=== PATIENT | female | born 1965 | race Caucasian/White ===

== ENCOUNTER 2020-10-13 00:47 | Inpatient (IN) | payer BC ==
[2020-10-13 02:37] VITALS: BMI 28.5
[2020-10-13] MEDS ORDERED: Ondansetron PF 4 MG/2 ML Vial IVP PRN (06:02)
[2020-10-13] MEDS ORDERED: Acetaminophen 325 MG TAB PO PRN (06:02)
[2020-10-13] MEDS ORDERED: Ondansetron ODT 4 MG TAB PO PRN (06:02)
[2020-10-13] MEDS ORDERED: Piperacillin/Tazobactam 3.375 GM in Sodium Chloride 0.9% 100 ML IVPB SCH (06:15)
[2020-10-13] MEDS: Sodium Chloride 0.9% 1,000 ML IV SCH ×2 (06:27→16:15)
[2020-10-13 06:37] LABS: Hemoglobin 12.8 g/dL (12.0-16.0)
[2020-10-13] MEDS: Morphine 2 MG/ML VIAL SLOW IVP PRN (09:09)
[2020-10-13 11:49] LABS: Hemoglobin 12.4 g/dL (12.0-16.0)
[2020-10-13] MEDS: Piperacillin/Tazobactam 3.375 GM in Sodium Chloride 0.9% 100 ML IVPB SCH ×2 (13:24→20:46)
[2020-10-13 14:57] LABS: SARS-CoV-2 PCR by NAA Not Detected (NotDetected)
[2020-10-14] MEDS: Morphine 2 MG/ML VIAL SLOW IVP PRN ×2 (02:23→13:24)
[2020-10-14] MEDS: Sodium Chloride 0.9% 1,000 ML IV SCH ×3 (02:38→23:32)
[2020-10-14] MEDS: Piperacillin/Tazobactam 3.375 GM in Sodium Chloride 0.9% 100 ML IVPB SCH ×3 (05:39→21:12)
[2020-10-14 05:59] LABS: #Eosinphils 0.2 thou/uL (0.0-0.7); #Lymphocytes 1.6 thou/uL (1.20-3.40); #Monocytes 0.4 thou/uL (0.11-0.59); #Neutrophils 2.9 thou/uL (1.40-6.50); %Basophils 0.3 % (0.0-1.0); %Eosinophils 3.8 % (0.0-10.0); %Lymphocytes 31.3 % (21.0-51.0); %Monocytes 8.4 % (0.0-10.0); %Neutrophils 56.3 % (42.0-75.0); Hemoglobin 12.3 g/dL (12.0-16.0); Mean Corpuscular HGB CONC 32.9 g/dL (32.0-36.0); Mean Corpuscular Hemoglobin 29.8 pg (27.0-31.0); Mean Corpuscular Volume 90.5 fL (78.0-98.0); Mean Platelet Volume 8.4 fL (7.4-10.4); Platelet Count 200 thou/uL (130-400); RBC Distribution Width 13.6 % (11.5-14.5); Red Blood Cell (RBC) Count 4.13 mill/uL (4.20-5.40); White Blood Cell (WBC) Count 5.2 thou/uL (4.8-10.8)
[2020-10-14] MEDS: Hydrocortisone Acetate 25 MG Suppository PR SCH ×2 (06:04→21:12)
[2020-10-14 06:17] LABS: Anion Gap 13 mmol/L (10-20); BUN (Urea Nitrogen) 7 mg/dL (9.8-20.1); Calc. Creatinine Clearance 98 mL/min (70-130); Calcium 8.5 mg/dL (7.8-10.44); Carbon Dioxide 23 mmol/L (22-29); Chloride 105 mmol/L (98-107); Glucose 118 mg/dL (70-105); Potassium 4.1 mmol/L (3.5-5.1); Sodium 137 mmol/L (136-145)
[2020-10-14] MEDS ORDERED: Polyethylene Glycol 3350 17 GM Packet PO PRN (10:21)
[2020-10-14] MEDS ORDERED: Bisacodyl 5 MG TAB PO PRN (10:22)
[2020-10-14] MEDS ORDERED: Hydrocortisone Acetate 25 MG Suppository PR SCH (11:30)
[2020-10-14] MEDS ORDERED: Senokot S 8.6-50 MG TAB PO SCH ×2 (11:30→21:00)
[2020-10-14] MEDS ORDERED: GoLYTELY 4,000 ml Bottle PO SCH (19:00)
[2020-10-14] MEDS: Senokot S 8.6-50 MG TAB PO SCH (21:12)
[2020-10-15 05:22] LABS: HBSAB Concentration Less than 8.00 mIU/mL; HBSAg Index 0.34 S/CO (0-0.99); Hep B Surf AB Non-Reactive (NonReactive); Hep B Surf Ag Non-Reactive S/CO (NonReactive)
[2020-10-15] MEDS: Piperacillin/Tazobactam 3.375 GM in Sodium Chloride 0.9% 100 ML IVPB SCH ×2 (05:31→14:05)
[2020-10-15] MEDS: Senokot S 8.6-50 MG TAB PO SCH (08:59)
[2020-10-15] MEDS: Sodium Chloride 0.9% 1,000 ML IV SCH (09:01)
[2020-10-15] MEDS ORDERED: Lisinopril 10 MG TAB PO SCH (11:30)
[2020-10-15] MEDS ORDERED: Lidocaine 1% PF 5 ML VIAL ONE (12:39)
[2020-10-15] MEDS ORDERED: PROPOFOL 200 MG/20 ML VIAL ONE (12:39)
[2020-10-15 16:32] VITALS: BP 189/85; TEMP 97.4
[2020-10-16] MEDS ORDERED: Lisinopril 10 MG TAB PO SCH (09:00)
== END 2020-10-15 17:03 | disposition home or self-care (01) | DRG 375 ==
LOC: SURG A 00:47
PROVIDERS: ADMIT Family Medicine; ATTEND Internal Medicine
PROC: 0DBP8ZX Excision of Rectum, Via Natural or Artificial Opening Endoscopic, Diagnostic (ICD-10-PCS; principal; 2020-10-15)
DX: D01.2 Carcinoma in situ of rectum (principal); K62.6 Ulcer of anus and rectum; I10 Essential (primary) hypertension; F17.210 Nicotine dependence, cigarettes, uncomplicated; E11.9 Type 2 diabetes mellitus without complications; K64.4 Residual hemorrhoidal skin tags; K57.30 Diverticulosis of large intestine without perforation or abscess without bleeding; B96.81 Helicobacter pylori [H. pylori] as the cause of diseases classified elsewhere; Z90.710 Acquired absence of both cervix and uterus; Z79.899 Other long term (current) drug therapy
CPT/HCPCS: 36415; 80048; 83630; 85014; 85018; 85025; 86480; 86706; 87045; 87046; 87324; 87338; 87340; 87427; 87449; 88305; 88341; 88342; J2270; J2543; J2704; J3490; U0003; U0005

== ENCOUNTER 2020-11-11 09:58 | Day surgery (SDC) | payer BC ==
[2020-11-10 12:07] VITALS: BMI 27.6
[2020-11-11] MEDS ORDERED: Ketorolac Tromethamine 30 MG/ML VIAL ONE ×2 (10:20→13:24)
[2020-11-11] MEDS ORDERED: Acetaminophen 500 MG TAB ONE (10:20)
[2020-11-11] MEDS ORDERED: Bupivacaine PF 0.5% 30 ML VIAL ONE (10:35)
[2020-11-11] MEDS ORDERED: Lidocaine 1% w/Epinephrine 1:100K 20 ML VIAL ONE (10:35)
[2020-11-11] MEDS ORDERED: Propofol 500 MG/50 ML VIAL ONE (11:47)
[2020-11-11] MEDS ORDERED: Midazolam HCl 2 mg/2 ml Vial ONE (11:47)
[2020-11-11] MEDS ORDERED: Fentanyl 100 MCG/2 ML VIAL ONE (11:47)
[2020-11-11] MEDS ORDERED: Ondansetron PF 4 MG/2 ML Vial ONE (13:24)
[2020-11-11] MEDS ORDERED: Dexamethasone 20 MG/5 ML VIAL ONE (13:24)
== END 2020-11-11 15:11 | disposition home or self-care (01) ==
LOC: SDC 09:58
PROVIDERS: ATTEND Specialist
PROC: 02HV33Z Insertion of Infusion Device into Superior Vena Cava, Percutaneous Approach (ICD-10-PCS; principal; 2020-11-11)
DX: C21.0 Malignant neoplasm of anus, unspecified (principal); E78.00 Pure hypercholesterolemia, unspecified; E11.9 Type 2 diabetes mellitus without complications; R03.0 Elevated blood-pressure reading, without diagnosis of hypertension; Z79.899 Other long term (current) drug therapy; Z90.710 Acquired absence of both cervix and uterus; Z98.890 Other specified postprocedural states
CPT/HCPCS: 71045; C1788; J0690; J1100; J1642; J1885; J2250; J2405; J2704; J3010; S0020

== ENCOUNTER 2021-01-13 10:26 | Day surgery (SDC) | payer BC ==
[2021-01-13] MEDS ORDERED: Sodium Chloride 0.9% 20 ML ONE (10:37)
[2021-01-13] MEDS ORDERED: diphenhydrAMINE 25 MG CAP PO SCH (10:45)
[2021-01-13] MEDS ORDERED: Acetaminophen 500 MG TAB PO SCH (10:45)
[2021-01-13 14:15] VITALS: BP 135/68; TEMP 97.8
== END 2021-01-13 14:16 | disposition home or self-care (01) ==
LOC: ONC/OP 10:26
PROVIDERS: ATTEND Internal Medicine Hematology & Oncology
PROC: 30233N1 Transfusion of Nonautologous Red Blood Cells into Peripheral Vein, Percutaneous Approach (ICD-10-PCS; principal; 2021-01-13)
DX: C21.0 Malignant neoplasm of anus, unspecified (principal); D63.0 Anemia in neoplastic disease; D69.6 Thrombocytopenia, unspecified; E11.9 Type 2 diabetes mellitus without complications; I10 Essential (primary) hypertension; E78.5 Hyperlipidemia, unspecified; E03.9 Hypothyroidism, unspecified; K21.9 Gastro-esophageal reflux disease without esophagitis; Z87.891 Personal history of nicotine dependence; Z79.899 Other long term (current) drug therapy
CPT/HCPCS: 36430; 86850; 86900; 86901; J1642; P9016; Q0163

== ENCOUNTER 2021-03-02 08:35 | Outpatient (CLI) | payer BC | END 2021-03-02 08:36 | disposition home or self-care (01) | LOC: PET 08:35 | PROVIDERS: ATTEND Internal Medicine Hematology & Oncology | DX: C21.8 Malignant neoplasm of overlapping sites of rectum, anus and anal canal (principal); N20.1 Calculus of ureter; N13.30 Unspecified hydronephrosis | CPT/HCPCS: 71260; 74177; 82565 ==

== ENCOUNTER 2021-08-13 08:00 | Outpatient (CLI) | payer BC | END 2021-08-13 08:01 | disposition home or self-care (01) | LOC: PET 08:00 | PROVIDERS: ATTEND Internal Medicine Hematology & Oncology | DX: C21.8 Malignant neoplasm of overlapping sites of rectum, anus and anal canal (principal) | CPT/HCPCS: 78815; A9552 ==

== ENCOUNTER 2021-11-22 09:26 | Outpatient (CLI) | payer BC ==
[2021-11-22] MEDS ORDERED: GASTROGRAFIN 30 ML BOT ONE (15:48)
[2021-11-22] MEDS ORDERED: Iopamidol 370 76% 100 ML VIAL ONE (15:48)
== END 2021-11-22 09:27 | disposition home or self-care (01) ==
LOC: CT 09:26
PROVIDERS: ATTEND Internal Medicine Hematology & Oncology
DX: C21.8 Malignant neoplasm of overlapping sites of rectum, anus and anal canal (principal)
CPT/HCPCS: 71260; 74177; 82565; Q9963; Q9967

== ENCOUNTER 2021-11-25 16:28 | Outpatient (CLI) | payer BC ==
[2021-11-25 17:13] LABS: Hemoglobin 11.7 g/dL (12.0-15.5); Mean Corpuscular HGB CONC 32.1 g/dL (32.0-36.0); Mean Corpuscular Hemoglobin 29.1 pg (27.0-33.0); Mean Corpuscular Volume 90.5 fl (81.6-98.3); Mean Platelet Volume 10.4 fl (7.4-10.4); Platelet Count 208 10x3/uL (150-450); RBC Distribution Width 14.8 % (11.5-14.5); Red Blood Cell (RBC) Count 4.02 10x6/uL (3.90-5.03); White Blood Cell (WBC) Count 3.4 10x3/uL (3.5-10.5)
[2021-11-25 17:28] LABS: Anion Gap 14 mmol/L (10-20); BUN (Urea Nitrogen) 22 mg/dL (9.8-20.1); Calc. Creatinine Clearance 0 mL/min (70-130); Calcium 9.9 mg/dL (7.8-10.44); Carbon Dioxide 26 mmol/L (22-29); Chloride 107 mmol/L (98-107); Estimated GFR 52; Glucose 145 mg/dL (70-105); Potassium 4.5 mmol/L (3.5-5.1); Sodium 142 mmol/L (136-145)
== END 2021-11-25 16:29 | disposition home or self-care (01) ==
LOC: LABBT 16:28
PROVIDERS: ATTEND Specialist
DX: Z01.812 Encounter for preprocedural laboratory examination (principal); D17.20 Benign lipomatous neoplasm of skin and subcutaneous tissue of unspecified limb; Z20.822 Contact with and (suspected) exposure to COVID-19
CPT/HCPCS: 80048; 85027; 87811

== ENCOUNTER 2021-11-30 09:50 | Day surgery (SDC) | payer BC ==
[2021-11-26 09:46] VITALS: BMI 25.8
[2021-11-30] MEDS ORDERED: Gabapentin 300 MG CAP ONE (10:21)
[2021-11-30] MEDS ORDERED: Acetaminophen 500 MG TAB ONE (10:21)
[2021-11-30] MEDS ORDERED: Ketorolac Tromethamine 30 MG/ML VIAL ONE ×2 (10:21→11:59)
[2021-11-30] MEDS ORDERED: fentaNYL Citrate/PF 100 MCG/2 ML SYRINGE ONE (11:36)
[2021-11-30] MEDS ORDERED: Bacitracin Zinc Ointment 30 gm TUBE ONE (11:40)
[2021-11-30] MEDS ORDERED: Bupivacaine/Epinephrine 0.25% 30 ML VIAL ONE ×2 (11:40→12:29)
[2021-11-30] MEDS ORDERED: CEFAZOLIN 2 GM VIAL ONE (11:52)
[2021-11-30] MEDS ORDERED: Sodium Chloride 0.9% 100 ML ONE (11:52)
[2021-11-30] MEDS ORDERED: Neostigmine Methylsulfate 3 MG/3 ML SYRINGE ONE (11:59)
[2021-11-30] MEDS ORDERED: Dexamethasone 20 MG/5 ML VIAL ONE (11:59)
[2021-11-30] MEDS ORDERED: PROPOFOL 200 MG/20 ML VIAL ONE (11:59)
[2021-11-30] MEDS ORDERED: Glycopyrrolate 0.2 MG/ML 5 ML SYRINGE ONE (11:59)
[2021-11-30] MEDS ORDERED: Rocuronium Bromide 10 MG/ML (10ML VIAL) ONE (11:59)
[2021-11-30] MEDS ORDERED: Lidocaine 1% MPF 2 ML VIAL ONE (11:59)
[2021-11-30] MEDS ORDERED: Ondansetron PF 4 MG/2 ML Vial ONE (11:59)
[2021-11-30] MEDS ORDERED: Fentanyl 100 MCG/2 ML VIAL ONE (13:46)
[2021-11-30] MEDS ORDERED: HYDROcodone/Acetaminophen 5/325 mg Tablet ONE (16:19)
== END 2021-11-30 16:40 | disposition home or self-care (01) ==
LOC: SDC 09:50
PROVIDERS: ATTEND Specialist
PROC: 0JB60ZZ Excision of Chest Subcutaneous Tissue and Fascia, Open Approach (ICD-10-PCS; principal; 2021-11-30)
DX: D17.22 Benign lipomatous neoplasm of skin and subcutaneous tissue of left arm (principal); E11.9 Type 2 diabetes mellitus without complications; E78.00 Pure hypercholesterolemia, unspecified; I10 Essential (primary) hypertension; Z79.899 Other long term (current) drug therapy
CPT/HCPCS: 88304; J0690; J1100; J1885; J2405; J2704; J3010; J3490

== ENCOUNTER 2022-02-25 07:40 | Outpatient (CLI) | payer BC ==
[2022-02-25] MEDS ORDERED: Iopamidol 370 76% 100 ML VIAL ONE (11:21)
[2022-02-25] MEDS ORDERED: GASTROGRAFIN 30 ML BOT ONE (11:21)
== END 2022-02-25 07:41 | disposition home or self-care (01) ==
LOC: CT 07:40
PROVIDERS: ATTEND Internal Medicine Hematology & Oncology
DX: C21.8 Malignant neoplasm of overlapping sites of rectum, anus and anal canal (principal); I70.90 Unspecified atherosclerosis; Z98.890 Other specified postprocedural states
CPT/HCPCS: 71260; 74177

== ENCOUNTER 2022-12-05 10:19 | Outpatient (CLI) | payer BC | END 2022-12-05 10:20 | disposition home or self-care (01) | LOC: BICCT 10:19 | PROVIDERS: ATTEND Internal Medicine Hematology & Oncology | DX: R91.1 Solitary pulmonary nodule (principal); C21.8 Malignant neoplasm of overlapping sites of rectum, anus and anal canal | CPT/HCPCS: 71250 ==

== ENCOUNTER 2023-03-31 10:51 | Outpatient (CLI) | payer BC | END 2023-03-31 10:52 | disposition home or self-care (01) | LOC: CT 10:51 | PROVIDERS: ATTEND Internal Medicine Hematology & Oncology | DX: C21.8 Malignant neoplasm of overlapping sites of rectum, anus and anal canal (principal); R91.1 Solitary pulmonary nodule; R91.8 Other nonspecific abnormal finding of lung field; Z90.49 Acquired absence of other specified parts of digestive tract; Z93.3 Colostomy status; K76.0 Fatty (change of) liver, not elsewhere classified; N20.0 Calculus of kidney | CPT/HCPCS: 71260; 74178; 82565 ==

== ENCOUNTER 2023-06-12 08:06 | Outpatient (CLI) | payer BC | END 2023-06-12 08:07 | disposition home or self-care (01) | LOC: RAD 08:06 | PROVIDERS: ATTEND Internal Medicine Critical Care Medicine | DX: R06.00 Dyspnea, unspecified (principal) | CPT/HCPCS: 71046 ==

== ENCOUNTER 2023-09-21 07:00 | Outpatient (CLI) | payer BC | END 2023-09-21 07:01 | disposition home or self-care (01) | LOC: CT 07:00 | PROVIDERS: ATTEND Internal Medicine Hematology & Oncology | DX: C21.8 Malignant neoplasm of overlapping sites of rectum, anus and anal canal (principal); R91.8 Other nonspecific abnormal finding of lung field | CPT/HCPCS: 71270; 74178 ==

== ENCOUNTER 2024-02-20 09:24 | Outpatient (CLI) | payer BC ==
[2024-02-20] MEDS ORDERED: Iopamidol 370 76% 100 ML VIAL ONE (11:46)
== END 2024-02-20 09:25 | disposition home or self-care (01) ==
LOC: BICCT 09:24
PROVIDERS: ATTEND Internal Medicine Hematology & Oncology
DX: C21.8 Malignant neoplasm of overlapping sites of rectum, anus and anal canal (principal); R91.8 Other nonspecific abnormal finding of lung field
CPT/HCPCS: 71270; 74178; 82565